=== PATIENT | male | born 1940 | race Two or more races ===

== ENCOUNTER 2024-04-28 13:42 | Inpatient (IN) | payer MEDICARE ==
[~2024-04-28] VITALS: Ht 185.4 cm; Wt 59.7 kg
[2024-04-28 15:20] LABS: Basophils # (auto) 0 10 ^3/uL (0-0.2); Basophils % (auto) 0.7 % (0.0-2.0); Eosinophils # (auto) 0 10 ^3/uL (0-0.8); Eosinophils % (auto) 0.6 % (0.0-7.0); Hematocrit 37.1 % (41.0-53.0); Hemoglobin 12.1 g/dL (13.5-17.5); Lymphocytes % (auto) 21.2 % (10.0-50.0); Mean Corpuscular Hemoglobin 26.1 pg (28.0-32.0); Mean Corpuscular Hgb Conc. 32.6 g/dL (32.0-36.0); Mean Corpuscular Volume 80.2 fL (80.0-100.0); Monocytes # (auto) 0.4 10 ^3/uL (0-1.3); Monocytes % (auto) 9.1 % (0.0-12.0); Neutrophils # (auto) 3.3 10 ^3/uL (1.6-8.6); Neutrophils % (auto) 68.4 % (37.0-80.0); Nucleated Red Blood Cells % 0.1 %; Red Blood Cells 4.62 10^6/uL (4.5-5.90); Red Cell Distribution Width 15.2 % (11.8-14.3); White Blood Cell 4.8 10^3/uL (4.4-10.8)
[2024-04-28 15:39] LABS: Alanine Aminotransferase 28 U/L (7-40); Alkaline Phosphatase 84 U/L (46-116); Calcium 8.8 mg/dL (8.5-10.1)
[2024-04-28 15:40] LABS: Anion Gap 6 (5-15); Aspartate Aminotransferase 75 U/L (13-40); BUN/Creatinine Ratio 10.9 (10.0-20.0); Bilirubin, Total 0.2 mg/dL (0.2-1.0); Blood Urea Nitrogen 13 mg/dL (9-23); Carbon Dioxide 23 mmol/L (20-30); Chloride 105 mmol/L (98-107); Creatine Kinase IFCC 1013 U/L (46-171); Glucose 103 mg/dL (74-106); Magnesium 1.8 mg/dL (1.6-2.6); Potassium 3.8 mmol/L (3.5-5.1); Sodium 134 mmol/L (136-145); Total Protein 6.2 g/dL (5.7-8.2)
[2024-04-28 17:25] VITALS: PULSE 65; RESP 12; O2SAT 95
[2024-04-28] MEDS: SODIUM CHLORIDE 0.9% 1,000 ML IV ONE ×2 (17:34→20:08)
[2024-04-28 18:03] LABS: Urine Bacteria None Seen /hpf (None Seen)
[2024-04-28 18:17] LABS: Urine Blood Negative /uL (Negative); Urine Clarity Clear (Clear); Urine Color Yellow (Yellow); Urine Hyaline Cast FEW /lpf (0 - 2); Urine Mucus FEW (None Seen); Urine Protein, UAD 1+ (Negative); Urine Specific Gravity 1.031 (1.001-1.035); Urine Urobilinogen Normal (Negative); Urine WBC 4 /hpf (0 - 3); Urine pH 5.5 (5.0-9.0)
[2024-04-28 19:30] VITALS: PULSE 76; RESP 16; O2SAT 100
[2024-04-28] MEDS ORDERED: ACETAMINOPHEN 325 MG TAB PO PRN (23:30)
[2024-04-28] MEDS ORDERED: DOCUSATE SOD 100 MG CAP PO PRN (23:30)
[2024-04-28] MEDS ORDERED: HYDROcodone-ACET 5/325MG TAB PO PRN (23:30)
[2024-04-28] MEDS ORDERED: NITROGLYCERIN 0.4 MG SL TAB SL PRN (23:45)
[2024-04-28] MEDS ORDERED: MORPHINE SULFATE INJ 2 MG/ml SYRG IV PRN (23:45)
[2024-04-28] MEDS: SODIUM CHLORIDE 0.9% 1,000 ML IV SCH (23:46)
[2024-04-29] VITALS (9 sets, daily range): BP systolic 130–171; BP diastolic 61–82; PULSE 60–107; RESP 16–22; TEMP 98.1–99.8; O2SAT 98–100
[2024-04-29 05:49] LABS: Basophils # (auto) 0 10 ^3/uL (0-0.2); Eosinophils # (auto) 0 10 ^3/uL (0-0.8); Eosinophils % (auto) 0.5 % (0.0-7.0); Mean Corpuscular Hemoglobin 26.6 pg (28.0-32.0); Mean Corpuscular Hgb Conc. 33.5 g/dL (32.0-36.0); Mean Corpuscular Volume 79.5 fL (80.0-100.0); Monocytes # (auto) 0.6 10 ^3/uL (0-1.3); Nucleated Red Blood Cells % 0.2 %
[2024-04-29 05:54] LABS: Basophils % (auto) 0.6 % (0.0-2.0); Hematocrit 33.9 % (41.0-53.0); Hemoglobin 11.3 g/dL (13.5-17.5); Lymphocytes # (auto) 1.7 10 ^3/uL (0.4-5.4); Lymphocytes % (auto) 32.5 % (10.0-50.0); Monocytes % (auto) 10.6 % (0.0-12.0); Neutrophils % (auto) 55.8 % (37.0-80.0); Red Blood Cells 4.26 10^6/uL (4.5-5.90); Red Cell Distribution Width 14.9 % (11.8-14.3); White Blood Cell 5.4 10^3/uL (4.4-10.8)
[2024-04-29 06:02] LABS: Alanine Aminotransferase 22 U/L (7-40); Albumin 3.6 g/dL (3.2-4.8); Alkaline Phosphatase 69 U/L (46-116); Anion Gap 10 (5-15); Aspartate Aminotransferase 66 U/L (13-40); BUN/Creatinine Ratio 6.8 (10.0-20.0); Blood Urea Nitrogen 7 mg/dL (9-23); Calcium 8.5 mg/dL (8.7-10.4); Carbon Dioxide 21 mmol/L (20-30); Chloride 104 mmol/L (98-107); Glucose 93 mg/dL (74-106); Potassium 3.2 mmol/L (3.5-5.1); Sodium 135 mmol/L (136-145)
[2024-04-29 06:03] LABS: Bilirubin, Total 0.3 mg/dL (0.2-1.0); Total Protein 5.9 g/dL (5.7-8.2)
[2024-04-29] MEDS: cefTRIAXone 1GM/50ML D5W 50 ML IV ONE (12:30)
[2024-04-29] MEDS: SODIUM CHLORIDE 0.9% 1,000 ML IV SCH (15:30)
[2024-04-29] MEDS: POTASSIUM EFFERVESENT TAB 25 MEQ PO ONE (17:32)
[2024-04-29] MEDS: cloNIDine HCL 0.1 MG TAB PO PRN (17:33)
[2024-04-29] MEDS ORDERED: HYDR25TA4 PO (19:23)
[2024-04-29] MEDS ORDERED: AMLO1TAB22 PO (19:23)
[2024-04-29] MEDS ORDERED: ATEN50TA PO (19:23)
[2024-04-30] VITALS (8 sets, daily range): BP systolic 142–162; BP diastolic 68–82; PULSE 59–73; RESP 17–22; TEMP 97.7–99.6; O2SAT 97–100
[2024-04-30] MEDS: POTASSIUM EFFERVESENT TAB 25 MEQ PO ONE (10:11)
[2024-04-30] MEDS: cefTRIAXone 1GM/50ML D5W 50 ML IV SCH (10:11)
[2024-04-30] MEDS: SODIUM CHLORIDE 0.9% 1,000 ML IV SCH (18:45)
[2024-04-30 22:20] LABS: Creatinine, Urine 34.01 mg/dL (30.0-125.0)
[2024-05-01] VITALS (8 sets, daily range): BP systolic 141–165; BP diastolic 70–93; PULSE 65–90; RESP 18–20; TEMP 97.7–98.8; O2SAT 97–100
[2024-05-01 07:47] LABS: Alanine Aminotransferase 33 U/L (7-40); Albumin 3.7 g/dL (3.2-4.8); Alkaline Phosphatase 65 U/L (46-116); Anion Gap 10 (5-15); Aspartate Aminotransferase 107 U/L (13-40); BUN/Creatinine Ratio 9.5 (10.0-20.0); Bilirubin, Total 0.5 mg/dL (0.2-1.0); Blood Urea Nitrogen 7 mg/dL (9-23); Calcium 8.6 mg/dL (8.7-10.4); Carbon Dioxide 22 mmol/L (20-30); Chloride 99 mmol/L (98-107); Glucose 104 mg/dL (74-106); Sodium 131 mmol/L (136-145)
[2024-05-01 07:58] LABS: Creatine Kinase IFCC 2070 U/L (46-171)
[2024-05-01] MEDS: POTASSIUM EFFERVESENT TAB 25 MEQ PO ONE ×2 (10:32→17:32)
[2024-05-02] VITALS (9 sets, daily range): BP systolic 126–175; BP diastolic 66–88; PULSE 64–97; RESP 16–22; TEMP 98.1–98.5; O2SAT 94–100
[2024-05-02] MEDS: hydroCHLOROthiazide 25 MG TAB PO ONE (13:37)
[2024-05-02] MEDS: amLODIPine BESYLATE 5 MG TAB PO ONE (13:37)
[2024-05-02 13:42] LABS: Chloride 97 mmol/L (98-107); Potassium 3.1 mmol/L (3.5-5.1); Sodium 129 mmol/L (136-145)
[2024-05-02 13:43] LABS: Anion Gap 8 (5-15); Calcium 8.2 mg/dL (8.7-10.4); Carbon Dioxide 24 mmol/L (20-30)
[2024-05-02 13:48] LABS: BUN/Creatinine Ratio 10.8 (10.0-20.0); Blood Urea Nitrogen 8 mg/dL (9-23); Glucose 120 mg/dL (74-106)
[2024-05-02] MEDS: POTASSIUM CHL 20 Meq TABLET PO ONE (16:35)
[2024-05-02] MEDS: LOSARTAN POTASSIUM 50 MG TAB PO SCH (17:47)
[2024-05-02] MEDS: ATENOLOL 25 MG TAB PO ONE (21:18)
[2024-05-03] VITALS (8 sets, daily range): BP systolic 117–167; BP diastolic 64–85; PULSE 64–75; RESP 16–19; TEMP 97.6–99; O2SAT 92–100
[2024-05-03 06:58] LABS: Chloride 93 mmol/L (98-107); Potassium 3.3 mmol/L (3.5-5.1); Sodium 127 mmol/L (136-145)
[2024-05-03 06:59] LABS: Anion Gap 9 (5-15); Calcium 8.9 mg/dL (8.7-10.4); Carbon Dioxide 25 mmol/L (20-30)
[2024-05-03 07:04] LABS: BUN/Creatinine Ratio 9.6 (10.0-20.0); Blood Urea Nitrogen 8 mg/dL (9-23); Glucose 110 mg/dL (74-106)
[2024-05-03 07:17] LABS: Creatine Kinase IFCC 2327 U/L (46-171)
[2024-05-03] MEDS: amLODIPine BESYLATE 5 MG TAB PO SCH (08:37)
[2024-05-03] MEDS ORDERED: hydroCHLOROthiazide 25 MG TAB PO SCH (10:00)
[2024-05-03] MEDS ORDERED: SODIUM CHLORIDE 0.9% 1,000 ML IV SCH (12:15)
[2024-05-03] MEDS ORDERED: POTASSIUM CHL 20 Meq TABLET PO ONE (12:15)
[2024-05-03] MEDS: POTASSIUM CHL 20 Meq TABLET PO ONE (12:47)
[2024-05-03] MEDS: SODIUM CHLORIDE 0.9% 1,000 ML IV SCH ×2 (12:48→16:30)
[2024-05-03] MEDS: LOSARTAN POTASSIUM 25 MG TAB PO ONE (17:02)
[2024-05-04] VITALS (7 sets, daily range): BP systolic 115–144; BP diastolic 69–76; PULSE 52–89; RESP 16–19; TEMP 97.9–99.7; O2SAT 94–98
[2024-05-04 07:08] LABS: Alanine Aminotransferase 48 U/L (7-40); Albumin 3.4 g/dL (3.2-4.8); Alkaline Phosphatase 60 U/L (46-116); Anion Gap 8 (5-15); Aspartate Aminotransferase 103 U/L (13-40); BUN/Creatinine Ratio 12.5 (10.0-20.0); Blood Urea Nitrogen 10 mg/dL (9-23); Calcium 8.6 mg/dL (8.7-10.4); Carbon Dioxide 24 mmol/L (20-30); Chloride 99 mmol/L (98-107); Glucose 117 mg/dL (74-106); Potassium 3.4 mmol/L (3.5-5.1); Sodium 131 mmol/L (136-145)
[2024-05-04 07:09] LABS: Bilirubin, Total 0.4 mg/dL (0.2-1.0); Total Protein 5.5 g/dL (5.7-8.2)
[2024-05-04 07:19] LABS: Creatine Kinase IFCC 1499 U/L (46-171)
[2024-05-04] MEDS: LOSARTAN POTASSIUM 50 MG TAB PO SCH (08:33)
[2024-05-04] MEDS: POTASSIUM CHL 20 Meq TABLET PO ONE (15:07)
[2024-05-04] MEDS: ONDANSETRON HCL 4 MG/2 ML VIAL IV PRN (21:44)
[2024-05-05] VITALS (8 sets, daily range): BP systolic 130–155; BP diastolic 66–76; PULSE 81–96; RESP 16–20; TEMP 97.7–98.4; O2SAT 98–99
[2024-05-05 06:30] LABS: Alanine Aminotransferase 45 U/L (7-40); Alkaline Phosphatase 56 U/L (46-116); Anion Gap 8 (5-15); Blood Urea Nitrogen 9 mg/dL (9-23); Calcium 8.6 mg/dL (8.7-10.4); Carbon Dioxide 24 mmol/L (20-30); Chloride 100 mmol/L (98-107); Glucose 119 mg/dL (74-106); Potassium 3.4 mmol/L (3.5-5.1); Sodium 132 mmol/L (136-145)
[2024-05-05 06:31] LABS: Albumin 3.4 g/dL (3.2-4.8); Aspartate Aminotransferase 79 U/L (13-40); Bilirubin, Total 0.6 mg/dL (0.2-1.0); Creatine Kinase IFCC 931 U/L (46-171); Total Protein 5.6 g/dL (5.7-8.2)
[2024-05-06] VITALS (8 sets, daily range): BP systolic 136–153; BP diastolic 62–84; PULSE 76–97; RESP 14–20; TEMP 37; O2SAT 95–100
[2024-05-06 08:03] LABS: Alanine Aminotransferase 41 U/L (7-40); Alkaline Phosphatase 57 U/L (46-116); Anion Gap 7 (5-15); BUN/Creatinine Ratio 10.1 (10.0-20.0); Blood Urea Nitrogen 8 mg/dL (9-23); Carbon Dioxide 27 mmol/L (20-30); Chloride 99 mmol/L (98-107); Glucose 114 mg/dL (74-106); Potassium 3.3 mmol/L (3.5-5.1); Sodium 133 mmol/L (136-145)
[2024-05-06 08:04] LABS: Albumin 3.4 g/dL (3.2-4.8); Aspartate Aminotransferase 60 U/L (13-40); Bilirubin, Total 0.6 mg/dL (0.2-1.0); Creatine Kinase IFCC 591 U/L (46-171); Total Protein 5.6 g/dL (5.7-8.2)
== END 2024-05-06 17:44 | DRG 557 ==
LOC: EDBD 13:42 → ER 13:42 → TELE 23:35 → TELE-WESTW 04-29 02:11
PROVIDERS: ADMIT Nurse Practitioner Family; ATTEND Family Medicine
PROC: 05HA33Z Insertion of Infusion Device into Left Brachial Vein, Percutaneous Approach (ICD-10-PCS; principal; 2024-05-06)
PROC: B54NZZA Ultrasonography of Left Upper Extremity Veins, Guidance (ICD-10-PCS; 2024-05-06)
DX: M62.82 Rhabdomyolysis (principal); G93.41 Metabolic encephalopathy; N17.0 Acute kidney failure with tubular necrosis; N39.0 Urinary tract infection, site not specified; E46 Unspecified protein-calorie malnutrition; Z68.1 Body mass index [BMI] 19.9 or less, adult; E87.1 Hypo-osmolality and hyponatremia; E86.0 Dehydration; E87.6 Hypokalemia; N18.2 Chronic kidney disease, stage 2 (mild); I12.9 Hypertensive chronic kidney disease with stage 1 through stage 4 chronic kidney disease, or unspecified chronic kidney disease
CPT/HCPCS: 36415; 70450; 71045; 76775; 80048; 80053; 81001; 82550; 82570; 83605; 83735; 83880; 83935; 84300; 84484; 85025; 87040; 87086; 93005; 97163; G0378; J2405